=== PATIENT | female | born 1990 | race Caucasian/White ===

== ENCOUNTER 2018-07-07 17:23 | Emergency (ER) | payer BC ==
[~2018-07-07] VITALS: Ht 165.1 cm; Wt 77.1 kg
[~2018-07-07 17:23] MED LIST: ACET1TAB43 PO; ACHD5005 PO; ALBU8.5H4 IH; ASCO-262 PO; CETI10TA20 PO; DOCU100C37 PO; DOXY1TAB3 PO; FAMO-119 PO; FOLI1TAB24 PO; HYDR118S10 PO; IBUP-1773 PO; MULT-228 PO; ONDA4TAB8 PO; allergy shot; vitamin b6 PO
--- OUTSIDE RECORDS SUMMARY | 2018-07-07 17:38 | XMS REPORT | Continuity of Care Document ---
Author Author [facility] Organization [facility] Address Unknown Phone Unavailable Allergies Active Description Code Type Severity Reaction Onset Reported/Identified Relationship to Patient Clinical Status Yes Latex, Natural Rubber [id number] Drug Allergy Unknown N/A 11/15/2013 Yes morphine [id number] Drug Allergy Unknown N/A 11/15/2013 Medications There is no data. Problems Date Dx Coded Attending Type Code Diagnosis Diagnosed By 11/15/2013 CIRO ZALDIVAR MD Ot 805.2 FX DORSAL VERTEBRA-CLOSE 11/15/2013 CIRO ZALDIVAR MD Ot 959.19 OTH INJURY OF OTHER SITES OF TRUNK 11/15/2013 CIRO ZALDIVAR MD Ot E000.8 OTHER EXTERNAL CAUSE STATUS 11/15/2013 CIRO ZALDIVAR MD Ot E849.0 ACCIDENT IN HOME 11/15/2013 CIRO ZALDIVAR MD Ot E880.9 FALL ON STAIR/STEP NEC 03/20/2015 DAVID PHOENIX MD Ot 789.00 06/22/2015 DAVID PHOENIX MD Ot 789.00 06/23/2015 NGUYỄN JACOBS DO Ot 643.03 MILD HYPEREMESIS-ANTEPAR 06/23/2015 NGUYỄN JACOBS DO Ot 643.03 07/28/2015 DAVID PHOENIX MD Ot 789.00 12/25/2015 NGUYỄN JACOBS DO Ot O63.1 PROLONGED SECOND STAGE (OF LABOR) 12/25/2015 NGUYỄN JACOBS DO Ot O76 ABNLT IN HEART RATE AND RHYTHM COM 12/25/2015 NGUYỄN JACOBS DO Ot Z37.0 SINGLE LIVE 12/25/2015 NGUYỄN JACOBS DO Ot Z3A.37 37 WEEKS GESTATION OF 01/06/2016 DAVID PHOENIX MD Ot 789.00 06/15/2016 DAVID PHOENIX MD Ot 789.00 ABDOMINAL PAIN, UNSPECIFIED SITE 11/09/2016 DAVID PHOENIX MD Ot 789.00 ABDOMINAL PAIN, UNSPECIFIED SITE 11/17/2016 DAVID PHOENIX MD Ot 789.00 ABDOMINAL PAIN, UNSPECIFIED SITE 11/20/2016 NAYLA ROSENBAUM DO Ot J45.909 UNSPECIFIED ASTHMA, UNCOMPLICATED 11/20/2016 NAYLA ROSENBAUM DO Ot R06.00 DYSPNEA, UNSPECIFIED 12/05/2016 NAYLA ROSENBAUM DO Ot J45.909 UNSPECIFIED ASTHMA, UNCOMPLICATED 12/05/2016 NAYLA ROSENBAUM DO Ot R06.00 DYSPNEA, UNSPECIFIED 05/10/2017 ALBAN VALENTIN, DAVID Ot 789.00 ABDOMINAL PAIN, UNSPECIFIED SITE 05/10/2017 NAYLA ROSENBAUM DO Ot J45.909 UNSPECIFIED ASTHMA, UNCOMPLICATED 05/10/2017 NAYLA ROSENBAUM DO Ot R06.00 DYSPNEA, UNSPECIFIED 07/24/2017 DAVID PHOENIX MD Ot 789.00 ABDOMINAL PAIN, UNSPECIFIED SITE 07/24/2017 NAYLA ROSENBAUM DO Ot J45.909 UNSPECIFIED ASTHMA, UNCOMPLICATED 07/24/2017 NAYLA ROSENBAUM DO Ot R06.00 DYSPNEA, UNSPECIFIED 07/24/2017 DAVID PHOENIX MD Ot 789.00 ABDOMINAL PAIN, UNSPECIFIED SITE 07/24/2017 NAYLA ROSENBAUM DO Ot J45.909 UNSPECIFIED ASTHMA, UNCOMPLICATED 07/24/2017 NAYLA ROSENBAUM DO Ot R06.00 DYSPNEA, UNSPECIFIED 05/21/2018 DAVID PHOENIX MD Ot 789.00 ABDOMINAL PAIN, UNSPECIFIED SITE 05/21/2018 NAYLA ROSENBAUM DO Ot J45.909 UNSPECIFIED ASTHMA, UNCOMPLICATED 05/21/2018 NAYLA ROSENBAUM DO Ot R06.00 DYSPNEA, UNSPECIFIED Procedures Code Description Performed By Performed On [id number] DIVISION OF FEMALE PERINEUM, EXTERNAL AP 12/23/2015 [id number] EXTRACTION OF PRODUCTS OF CONCEPTION, [place] 12/23/2015 Results There is no data. Encounters ACCT No. Visit Date/Time Discharge Status Pt. Type Provider Facility Loc./Unit Complaint [id number] 11/17/2016 14:09:00 11/17/2016 23:59:59 [facility] Outpatient NAYLA ROSENBAUM DO [facility] ASTHMA,DYSPNEA [id number] 06/22/2015 10:49:00 06/23/2015 11:57:00 DIS Inpatient NGUYỄN JACOBS DO [facility] HYPEREMESIS [id number] 11/15/2013 02:09:00 11/15/2013 05:34:00 DIS Emergency CIRO ZALDIVAR MD [facility] ER FALL,BACK PAIN [id number] 11/10/2013 09:43:00 11/10/2013 23:59:59 CLS Outpatient DAVID PHOENIX MD [facility] RAD RUQ PAIN [id number] 12/23/2015 05:30:00 ACT Inpatient VALERIENGUYỄN CRUZ DO [facility] LDRP SROM 11/201605/28/2018 08:31:39 05/28/2018 23:59:59 CLS Outpatient Lashell Tomlinson 6016 11/30/2016 10:31:19 11/30/2016 23:59:59 CLS Outpatient
[2018-07-07] MEDS ORDERED: fentaNYL INJECTION 100 MCG/2 ML AMP IVP ONE ×2 (18:15→19:30)
[2018-07-07] MEDS ORDERED: NS IV 1000 ML 1,000 ML IV SCH (18:15)
[2018-07-07] MEDS ORDERED: NS 100 ML (IVPB) BAG IV ONE (18:15)
[2018-07-07] MEDS ORDERED: ONDANSETRON 4 MG/2 ML (SDV) Z0FRAN IVP ONE (18:15)
[2018-07-07] MEDS ORDERED: IOHEXOL 350 MG/ML 100 ML (OMNIPAQUE 350) VIAL IV ONE (18:15)
[2018-07-07 18:18] LABS: BASOPHILS % (AUTO) 0 % (0-10); EOSINOPHILS # (AUTO) 0.1 10^3/uL (0.0-0.3); EOSINOPHILS % (AUTO) 1 % (0-10); HEMATOCRIT 43 % (35-52); HEMOGLOBIN 14.9 G/DL (11.5-16.0); LYMPHOCYTES % (AUTO) 31 % (12-44); MEAN CORPUSCULAR HEMOGLOBIN 29 PG (25-34); MEAN CORPUSCULAR HGB CONC 34 G/DL (32-36); MEAN CORPUSCULAR VOLUME 85 FL (80-99); MEAN PLATELET VOLUME 10.4 FL (7.4-10.4); MONOCYTES # (AUTO) 0.5 X 10^3 (0.0-1.0); MONOCYTES % (AUTO) 8 % (0-12); NEUTROPHILS # (AUTO) 3.8 X 10^3 (1.8-7.8); NEUTROPHILS % (AUTO) 59 % (42-75); PLATELET COUNT 272 10^3/uL (130-400); RED BLOOD COUNT 5.13 10^6/uL (4.35-5.85); WHITE BLOOD COUNT 6.4 10^3/uL (4.3-11.0)
--- NOTE | 2018-07-07 18:30 | ED Abdominal Pain ---
General Chief Complaint: Abdominal/GI Problems Stated Complaint: RT SIDE ABD PAIN Nursing Triage Note: C/O R LOWER QUAD PAIN REPORTS NOT FELT WELL ALL WEEKEND TODAY PAIN WORSE. NAUSEA NO VOMITING. Sepsis Screen: No Definite Risk Source of Information: Patient Exam Limitations: No Limitations History of Present Illness Date Seen by Provider: Jul 07, 2018 Time Seen by Provider: 18:29 Initial Comments To ER with reports of right lower quadrant pain. This began about 2-3 days ago. The pain was rather diffuse but after awakening today from a nap seemed much more intense and localized to the RLQ. She has had nausea but no vomiting. Today , after a wedding she laid down for a nap and then awakened. She is unable to put her legs flat because this causes worsening pain. She does have a history of some gallbladder issues but states this feels different, (she still has her gallbladder) and she also has a history of kidney stones but this feels different and she also reports a history of ovarian cysts but this pain is more superior than that. Timing/Duration: 2-3 Days Severity/Quality: Moderate, Severe Location: RLQ Radiation: No Radiation Activities at Onset: None Associated Symptoms: No Nausea/Vomiting Allergies and Home Medications Allergies Coded Allergies: Latex, Natural Rubber (Verified Allergy, Unknown, 11/15/13) morphine (Verified Allergy, Unknown, 11/15/13) Home Medications Acetaminophen with Codeine 1 Each Tablet, 1-2 TAB PO Q4H PRN for MODERATE TO SEVERE PAIN Prescribed by: NGUYỄN JACOBS on 12/25/15852 Albuterol Sulfate 8.5 Gm Hfa.aer.ad, 8.5 GM IH Q4H PRN for SHORTNESS OF BREATH, (Reported) Ascorbate Calcium Unknown Strength Tablet, 1 PO DAILY, (Reported) Cetirizine HCl 10 Mg Tablet, 10 MG PO BID, (Reported) Docusate Sodium 100 Mg Capsule, 100 MG PO BID PRN for CONSTIPATION Prescribed by: NGUYỄN JACOBS on 12/25/15852 Doxylamine/Pyridoxine HCl 1 Each Tablet.dr, 1 EACH PO HS, (Reported) Famotidine 20 Mg Tablet, 1 PO DAILY, (Reported) Folic Acid 1 Mg Tablet, 1 MG PO DAILY, (Reported) Ibuprofen 600 Mg Tablet, 600 MG PO Q6H Prescribed by: NGUYỄN JACOBS on 12/25/15852 Multivitamin 1 Each Tab.chew, 1 EACH PO DAILY, (Reported) [allergy shot] , weekly, (Reported) [vitamin b6] , 1 PO DAILY, (Reported) Patient Home Medication List Home Medication List Reviewed: Yes Review of Systems Constitutional: see HPI; No chills, No fever EENTM: No Symptoms Reported Respiratory: No Symptoms Reported Cardiovascular: No Symptoms Reported Gastrointestinal: See HPI, Abdominal Pain; Denies Constipated, Denies Diarrhea , Denies Nausea, Denies Vomiting Genitourinary: No Symptoms Reported Musculoskeletal: no symptoms reported Skin: no symptoms reported Psychiatric/Neurological: No Symptoms Reported Endocrine: No Symptoms Reported Past Vdxlvth-Syqswm-Vgmbrn Hx Patient Social History Alcohol Use: Denies Use Recreational Drug Use: No Smoking Status: Never a Smoker Recent Foreign Travel: No Contact w/Someone Who Travel: No Recent Infectious Disease Expo: No Immunizations Up To Date Tetanus Booster (TDap): Less than 5yrs Past Medical History Surgeries: Yes (brain 2000, ovarian/cervial 2009) Respiratory: Yes Asthma Cardiac: No Neurological: Yes (surgery for chiari malformation 2000) Reproductive Disorders: Yes Female Reproductive Disorders: Endometriosis Sexually Transmitted Disease: No HIV/AIDS: No Genitourinary: Yes Kidney Stones Gastrointestinal: Yes Irritable Bowel Musculoskeletal: No (fx back 2012 ) Endocrine: No Cancer: Yes (mass surgically removed from ovary and cervix 2009) Cervical, Ovarian Psychosocial: No Integumentary: No Blood Disorders: No Family Medical History Asthma 19 FATHER Cardiovascular disease 19 FATHER (PGF) Cataracts 19 FATHER (PGM) Colon cancer 19 MOTHER (?MGF) Completed stroke 19 FATHER (PGF) Deafness or hearing loss 19 FATHER (grandparents) 19 MOTHER (grandparents) Diabetes mellitus 19 MOTHER (MGM) Headache disorder 19 MOTHER Hypertension 19 MOTHER (MGM) Kidney disease G8 SISTER (kidney stones) Myocardial infarction 19 FATHER (PGF) Parkinson's disease 19 FATHER (PGF) Thyroid disease 19 MOTHER No Pertinent Family Hx Physical Exam Vital Signs Vital Signs - First Documented 07/07/18 17:32 Temp 97.6 Pulse 78 Resp 18 B/P (MAP) 109/73 (85) Pulse Ox 98 Capillary Refill : Less Than 3 Seconds Height/Weight/BMI Height: 5'5.00" Weight: 170lbs. oz. 77.733934iz; 34.08 BMI Method:Stated General Appearance: WD/WN, no apparent distress HEENT: PERRL/EOMI, normal ENT inspection Respiratory: no respiratory distress, no accessory muscle use Cardiovascular: regular rate, rhythm, no murmur Gastrointestinal: normal bowel sounds, soft; No guarding, No rebound; tenderness Extremities: normal range of motion, non-tender Neurologic/Psychiatric: alert, normal mood/affect, oriented x 3 Skin: normal color, warm/dry Progress/Results/Core Measures Results/Orders Lab Results Laboratory Tests Test 07/07/18 18:03 07/07/18 19:00 Range/Units White Blood Count 6.4 4.3-11.0 10^3/uL Red Blood Count 5.13 4.35-5.85 10^6/uL Hemoglobin 14.9 11.5-16.0 G/DL Hematocrit 43 35-52 % Mean Corpuscular Volume 85 80-99 FL Mean Corpuscular Hemoglobin 29 25-34 PG Mean Corpuscular Hemoglobin Concent 34 32-36 G/DL Red Cell Distribution Width 13.0 10.0-14.5 % Platelet Count 272 130-400 10^3/uL Mean Platelet Volume 10.4 7.4-10.4 FL Neutrophils (%) (Auto) 59 42-75 % Lymphocytes (%) (Auto) 31 12-44 % Monocytes (%) (Auto) 8 0-12 % Eosinophils (%) (Auto) 1 0-10 % Basophils (%) (Auto) 0 0-10 % Neutrophils # (Auto) 3.8 1.8-7.8 X 10^3 Lymphocytes # (Auto) 2.0 1.0-4.0 X 10^3 Monocytes # (Auto) 0.5 0.0-1.0 X 10^3 Eosinophils # (Auto) 0.1 0.0-0.3 10^3/uL Basophils # (Auto) 0.0 0.0-0.1 10^3/uL Sodium Level 143 135-145 MMOL/L Potassium Level 3.7 3.6-5.0 MMOL/L Chloride Level 110 H 98-107 MMOL/L Carbon Dioxide Level 26 21-32 MMOL/L Anion Gap 7 5-14 MMOL/L Blood Urea Nitrogen 15 7-18 MG/DL Creatinine 0.73 0.60-1.30 MG/DL Estimat Glomerular Filtration Rate > 60 BUN/Creatinine Ratio 21 Glucose Level 101 70-105 MG/DL Calcium Level 9.1 8.5-10.1 MG/DL Corrected Calcium 9.0 8.5-10.1 MG/DL Total Bilirubin 0.4 0.1-1.0 MG/DL Aspartate Amino Transf (AST/SGOT) 15 5-34 U/L Alanine Aminotransferase (ALT/SGPT) 12 0-55 U/L Alkaline Phosphatase 61 40-136 U/L Total Protein 6.5 6.4-8.2 GM/DL Albumin 4.1 3.2-4.5 GM/DL Serum Test, Qualitative NEGATIVE NEGATIVE Urine Color YELLOW Urine Clarity CLEAR Urine pH 7 5-9 Urine Specific [place] 1.010 L 1.016-1.022 Urine Protein NEGATIVE NEGATIVE Urine Glucose (UA) NEGATIVE NEGATIVE Urine Ketones NEGATIVE NEGATIVE Urine Nitrite NEGATIVE NEGATIVE Urine Bilirubin NEGATIVE NEGATIVE Urine Urobilinogen NORMAL NORMAL MG/DL Urine Leukocyte Esterase 1+ H NEGATIVE Urine RBC (Auto) NEGATIVE NEGATIVE Urine RBC NONE /HPF Urine WBC 0-2 /HPF Urine Squamous Epithelial Cells 0-2 /HPF Urine Renal Epithelial Cells NONE /HPF Urine Crystals NONE /LPF Urine Bacteria NEGATIVE /HPF Urine Casts NONE /LPF Urine Mucus SMALL H /LPF Urine Culture Indicated NO My Orders Orders - SERINA LANCASTER HOME CHILD CARE PROVIDER Cbc With Automated Diff (07/07/18 18:04) Comprehensive Metabolic Panel (07/07/18 18:04) Ua Culture If Indicated (07/07/18 18:04) Iv Heplock-Insert (Order) (07/07/18 18:04) Hcg,Qualitative Serum (07/07/18 18:04) Fentanyl Injection (Sublimaze Injection (07/07/18 18:15) Ondansetron Injection (Zofran Injectio (07/07/18 18:15) Ns Iv 1000 Ml (Sodium Chloride 0.9%) (07/07/18 18:15) Ct Abd/Pelv W (Appendicitis) (07/07/18 18:04) Iohexol Injection (Omnipaque 350 Mg/Ml 1 (07/07/18 18:15) Ns (Ivpb) (Sodium Chloride 0.9% Ivpb Bag (07/07/18 18:15) Fentanyl Injection (Sublimaze Injection (07/07/18 19:30) Us Non Ob Transvaginal 70410 (07/07/18 19:36) Ketorolac Injection (Toradol Injection) (07/07/18 21:15) Medications Given in ED Current Medications Medications Dose Ordered Sig/Angela Route Start Time Stop Time Status Last Admin Dose Admin Fentanyl Citrate 50 mcg ONCE ONCE IVP 07/07/18 18:15 07/07/18 18:16 DC 07/07/18 18:13 50 MCG Fentanyl Citrate 75 mcg ONCE ONCE IVP 07/07/18 19:30 07/07/18 19:31 DC 07/07/18 19:39 75 MCG Iohexol 100 ml ONCE ONCE IV 07/07/18 18:15 07/07/18 20:42 DC 07/07/18 18:40 100 ML Ondansetron HCl 4 mg ONCE ONCE IVP 07/07/18 18:15 07/07/18 18:16 DC 07/07/18 18:12 4 MG Sodium Chloride 100 ml ONCE ONCE IV 07/07/18 18:15 07/07/18 20:42 DC 07/07/18 18:40 100 ML Vital Signs/I&O 07/07/18 17:32 Temp 97.6 Pulse 78 Resp 18 B/P (MAP) 109/73 (85) Pulse Ox 98 Blood Pressure Mean: 85 Diagnostic Imaging Diagonstic Imaging: CT Comments NAME: LUH NOBLES MED REC#: [id number] PT STATUS: REG ER : 1990 PHYSICIAN: SERINA LANCASTER APRN ADMIT DATE: 07/07/18/ER Draft Date of Exam:07/07/18 CT ABD/PELV W (APPENDICITIS) PROCEDURE: CT abdomen and pelvis with contrast, rule out appendicitis. TECHNIQUE: Multiple contiguous axial images were obtained through the abdomen and pelvis after the administration of intravenous contrast. INDICATION: Right lower quadrant pain. COMPARISON: There are no previous CT abdomen/pelvis examinations available for comparison. FINDINGS: The coronal images indicate that the cecum overlies the LEFT LOWER QUADRANT. The appendix was visualized near midline and does not seem to be abnormally thickened. There is no distortion of the periappendiceal fat to suggest acute appendicitis either. The position of the cecum in the left lower quadrant would indicate a malrotation anomaly. If further study is desired, then an air contrast colon exam would be recommended. There is no pelvic mass or free fluid collection noted. There is an IUD within the uterus, and the IUD seems to be in good position. The urinary bladder is grossly unremarkable. The liver, spleen, pancreas, adrenals, gallbladder, kidneys, aorta, and inferior vena cava show no sign of an acute abnormality. Both kidneys do show excretion of the contrast, and there is no evidence for obstruction of either collecting system. The stomach is partially filled with fluid and consequently difficult to assess. The lung bases are clear. The bone window show no evidence for a fracture or for a destructive lesion. IMPRESSION: 1. There is no evidence for acute appendicitis. No other acute abnormality of the abdomen or pelvis is noted either. 2. The cecum lies in the left lower quadrant. 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 Recommendations as above. 3. There is an IUD within the uterus, and the IUD seems to be in good position. Dictated on workstation # [id number] Dict: 07/07/181904 Trans: 07/07/181914 [id number] Interpreted by: ADI PEREZ MD Electronically signed by: Departure Communication (Admissions) I spoke with Dr. Armstrong from surgery. Recommends transvaginal ultrasound to evaluate ovaries. If unremarkable can discharge to home with return precautions. 2122- her pain was initially an 8 or 9 out of 10, currently rated at 5 out of 10. I will order Toradol, she does report persistent nausea. She's had Phenergan in the past so we'll give a dose of Phenergan 12.5 mg IV prior to discharge. We will send her home with Zofran and Percocet as needed for pain control tonight. I discussed with her return precautions including fevers, vomiting, worsening abdominal pain. Otherwise she will call Dr. Garcia tomorrow to make an appointment for follow-up. We discussed other possible etiologies such as a ruptured ovarian cyst which she does have a history of. There is no sign of bowel obstruction, normal labs, normal urinalysis. I also discussed with her possibility of a pelvic or gynecologic infection given that she has an IUD. I did offer to do a pelvic exam with cultures here or do for this to her primary care provider Dr. TOMLINSON. She would prefer to follow-up and have this done with her primary care provider and asserts that she's had no vaginal discharge. Impression Primary Impression: nonspecific right lower quadrant abdominal pain Disposition: 01 HOME, SELF-CARE Condition: Stable Departure-Patient Inst. Decision time for Depature: 20:52 Referrals: RAPHAEL TOMLINSON DO (PCP/Family) Primary Care Physician Patient Instructions: Acute Abdomen (Belly Pain), Adult (DC) Add. Discharge Instructions: 1. Return to ER for any fevers or vomiting 2. Follow-up with Dr. Tomlinson. Call tomorrow to make an appointment to be seen All discharge instructions reviewed with patient and/or family. Voiced understanding. Work/School Note: Work Release Form Date Seen in the Emergency Department: Jul 07, 2018 Return to Work: Jul 09, 2018 Images Torso/Trunk 1 - Tenderness Copy Copies To 1: RAPHAEL TOMLINSON PETER J APRN Jul 07, 2018 18:30
[2018-07-07 18:47] LABS: ALANINE AMINOTRANSFERASE 12 U/L (0-55); ALBUMIN 4.1 GM/DL (3.2-4.5); ALKALINE PHOSPHATASE 61 U/L (40-136); BILIRUBIN,TOTAL 0.4 MG/DL (0.1-1.0); BUN/CREATININE RATIO 21; CALCIUM 9.1 MG/DL (8.5-10.1); CARBON DIOXIDE 26 MMOL/L (21-32); CHLORIDE 110 MMOL/L (98-107); CREATININE SERUM 0.73 MG/DL (0.60-1.30); GFR ESTIMATED > 60; GLUCOSE 101 MG/DL (70-105); POTASSIUM 3.7 MMOL/L (3.6-5.0); SODIUM 143 MMOL/L (135-145); TOTAL PROTEIN 6.5 GM/DL (6.4-8.2)
--- NOTE | 2018-07-07 19:16 | Diagnostic Imaging Report ---
PROCEDURE: CT abdomen and pelvis with contrast, rule out appendicitis. TECHNIQUE: Multiple contiguous axial images were obtained through the abdomen and pelvis after the administration of intravenous contrast. INDICATION: Right lower quadrant pain. COMPARISON: There are no previous CT abdomen/pelvis examinations available for comparison. FINDINGS: The coronal images indicate that the cecum overlies the LEFT LOWER QUADRANT. The appendix was visualized near midline and does not seem to be abnormally thickened. There is no distortion of the periappendiceal fat to suggest acute appendicitis either. The position of the cecum in the left lower quadrant would indicate a malrotation anomaly. If further study is desired, then an air contrast colon exam would be recommended. There is no pelvic mass or free fluid collection noted. There is an IUD within the uterus, and the IUD seems to be in good position. The urinary bladder is grossly unremarkable. The liver, spleen, pancreas, adrenals, gallbladder, kidneys, aorta, and inferior vena cava show no sign of an acute abnormality. Both kidneys do show excretion of the contrast, and there is no evidence for obstruction of either collecting system. The stomach is partially filled with fluid and consequently difficult to assess. The lung bases are clear. The bone window show no evidence for a fracture or for a destructive lesion. IMPRESSION: 1. There is no evidence for acute appendicitis. No other acute abnormality of the abdomen or pelvis is noted either. 2. The cecum lies in the left lower quadrant. 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 Recommendations as above. 3. There is an IUD within the uterus, and the IUD seems to be in good position. Dictated by: Dictated on workstation # [id number]
[2018-07-07 19:19] LABS: BILIRUBIN,URINE NEGATIVE (NEGATIVE); CLARITY,URINE CLEAR; COLOR,URINE YELLOW; GLUCOSE, URINE (UA) NEGATIVE (NEGATIVE); KETONES,URINE NEGATIVE (NEGATIVE); LEUKOCYTE ESTERASE ,URINE 1+ (NEGATIVE); NITRITE,URINE NEGATIVE (NEGATIVE); PH,URINE 7 (5-9); PROTEIN,URINE NEGATIVE (NEGATIVE); UROBILINOGEN,URINE NORMAL (NORMAL)
[2018-07-07 19:29] LABS: BACTERIA,URINE NEGATIVE /HPF; WBC,URINE 0-2 /HPF
[2018-07-07 19:30] LABS: SQUAMOUS EPITHELIAL CELL,UR 0-2 /HPF
[2018-07-07] MEDS ORDERED: KETOROLAC 30 MG/ML VIAL IVP ONE (21:15)
[2018-07-07] MEDS ORDERED: RX-ONDANSETRON 4 MG ODT (ZOFRAN) PPK #4 PO STA (21:21)
[2018-07-07] MEDS ORDERED: PROMETHAZINE INJ 25 MG/ML (PHENERGAN) AMP IVP ONE (21:30)
[2018-07-07] MEDS ORDERED: RX-OXYCODONE/APAP 5-325 MG #4 TAB PK PO PRN (21:30)
[2018-07-07 21:43] VITALS: BP 109/73
--- NOTE | 2018-07-07 22:07 | Diagnostic Imaging Report ---
INDICATION: Right-sided pain. EXAMINATION: Pelvic ultrasound. FINDINGS: The CT abdomen/pelvis exam performed earlier today failed to show any sign of an acute abnormality. On this study, the uterus is nongravid and not enlarged, measuring 7.1 x 5.4 x 3.5 cm. As noted on the CT exam, there is an IUD within the endometrium. The IUD seems to be in good position. And the endometrial lining is not thickened. There is no focal mass involving the uterus to suggest a fibroid. Both ovaries were identified and were generally unremarkable. There is good blood flow to each ovary and there is no sign of torsion. There is no pelvic mass or free fluid collection evident. IMPRESSION: 1. There is no evidence for an acute pelvic abnormality. 2. The IUD within the uterus appears to be in good position. Dictated by: Dictated on workstation # [id number]
== END 2018-07-07 21:43 | disposition home or self-care (01) ==
LOC: EDUNIT# 17:23 → ER 17:25
DX: R10.31 Right lower quadrant pain (principal); J45.909 Unspecified asthma, uncomplicated; Z85.43 Personal history of malignant neoplasm of ovary; Z82.49 Family history of ischemic heart disease and other diseases of the circulatory system; Z80.0 Family history of malignant neoplasm of digestive organs; Z87.19 Personal history of other diseases of the digestive system; Z91.040 Latex allergy status; Z88.5 Allergy status to narcotic agent; Z79.51 Long term (current) use of inhaled steroids; Z87.442 Personal history of urinary calculi; Z87.448 Personal history of other diseases of urinary system
CPT/HCPCS: 36415; 74177; 76830; 80053; 81000; 84703; 85025

== ENCOUNTER → 2019-05-15 | Outpatient (CLI) | payer BC ==
--- NOTE | 2019-05-15 15:32 | Diagnostic Imaging Report ---
INDICATION: survey. TECHNIQUE: Multiple real-time grayscale images were obtained over the gravid uterus. COMPARISON: There are no prior studies available for comparison. FINDINGS: There is a single live fetus in breech presentation. heart motion was noted and a rate of 157 bpm was recorded. There were no abnormalities identified. The growth parameters are fairly uniform. The placenta is anterior and there is no previa. The amniotic fluid index is within normal limits. The cervix was identified and measures 3.3 cm in length. Biometrical measurements are as follows: Biparietal 4.35 cm, age 19 weeks 2 days. Head circumference 16.65 cm, age 19 weeks 3 days. Abdominal circumference 14.32 cm, age 19 weeks 5 days. Femur length 3.11 cm, age 19 weeks 5 days. Sonographic estimate age: 19 weeks 4 days. Sonographic estimated date of delivery: 10/05/2019. Estimated Weight: 302 gm (+/- 44 gm). LMP percentile: 56%. heart rate: 157 beats per minute. number: 1 of 1. IMPRESSION: 1. There is a single live fetus in breech presentation approximately 19 weeks 4 days gestation plus or -1.5 weeks. The EDC is 10/05/2019. 2. There were no abnormalities identified. 3. The growth parameters are fairly uniform. Dictated by: Dictated on workstation # [id number]
== END ==
LOC: RAD 13:54
PROVIDERS: ATTEND Obstetrics & Gynecology
DX: Z36.89 Encounter for other specified antenatal screening (principal); Z3A.19 19 weeks gestation of pregnancy
CPT/HCPCS: 76805

== ENCOUNTER 2019-09-08 08:19 | Outpatient (CLI) | payer BC ==
[~2019-09-08] VITALS: Ht 163 cm; Wt 88.9 kg
--- NOTE | 2019-09-08 08:10 | NUR ---
LUH NOBLES presented to unit via ambulation from home, with c/o DECREASED MOVEMENT,LOWER ABD PRESSURE. LUH NOBLES weighed, gowned, voided, and to bed. EFHM and TOCO applied, VS taken. LUH NOBLES oriented to bed controls, call light, TV, heat, and A/C controls.
[2019-09-08 08:30] VITALS: BP 120/81
[2019-09-08 08:49] LABS: BILIRUBIN,URINE NEGATIVE (NEGATIVE); CLARITY,URINE CLEAR; COLOR,URINE YELLOW; GLUCOSE, URINE (UA) NEGATIVE (NEGATIVE); KETONES,URINE NEGATIVE (NEGATIVE); LEUKOCYTE ESTERASE ,URINE 3+ (NEGATIVE); NITRITE,URINE NEGATIVE (NEGATIVE); PH,URINE 6 (5-9); PROTEIN,URINE 2+ (NEGATIVE); UROBILINOGEN,URINE NORMAL (NORMAL)
[2019-09-08 09:00] LABS: BACTERIA,URINE TRACE /HPF; SQUAMOUS EPITHELIAL CELL,UR TNTC /HPF
--- NOTE | 2019-09-08 09:10 | NUR ---
DR JACOBS ON UNIT FOR ANOTHER PT. NOTIFIED OF PT ARRIVAL. C/O DECREASED MOVEMENT, INCREASED VAGINAL DISCHARGE, AND PRESSURE. UPDATED ON PT CTX PATTERN, FHR STATUS, NEGATIVE NITRAZINE, SVE, UA RESULTS. ORDERS REC'D TO CALL IN KEFLEX, D/C PT TO HOME.
--- NOTE | 2019-09-08 09:17 | NUR ---
KEFLEX 500MG QID X7 DAYS CALLED TO [facility]
[2019-09-08] MEDS ORDERED: CEPH-507 PO (09:23)
--- NOTE | 2019-09-08 09:40 | NUR ---
DISCHARGE INSTRUCTIONS EXPLAINED TO PT WITH COPY PROVIDED TO PT. PT NOTIFIED OF PRESCRIPTION CALLED IN TO [facility]. PT VERBALIZES UNDERSTANDING OF INSTRUCTION AND SIGNS TO VERIFY. QUESTIONS ANSWERED TO PT SATISFACTION. NO FURTHER NEEDS OR CONCERNS VOICED. PT AMBULATES OFF UNIT TO PRIVATE VEHICLE WITH ALL PERSONAL BELONGINGS.
== END 2019-09-08 09:40 | disposition home or self-care (01) ==
LOC: LDRP 08:19 → WSo 08:19
PROVIDERS: ATTEND Obstetrics & Gynecology
DX: O36.8130 Decreased fetal movements, third trimester, not applicable or unspecified (principal); Z3A.36 36 weeks gestation of pregnancy
CPT/HCPCS: 81000; 87088; 99214

== ENCOUNTER 2019-09-24 09:27 | Inpatient (IN) | payer BC ==
[~2019-09-24] VITALS: Ht 165.1 cm; Wt 90.7 kg
[2019-09-24] VITALS (38 sets, daily range): BP systolic 104–153; BP diastolic 57–91
--- NOTE | 2019-09-24 09:20 | NUR ---
Arrived to unit ambulates self accompanied by family member. Pt c/o " contractions, back pain." To room 320. Gowned and urine sample obtained. To bed and monitors applied. Oriented to room, call light and surroundings. plan of care reviewed with pt and family member.
[~2019-09-24 09:27] MED LIST changes: +CEPH-507 PO
--- NOTE | 2019-09-24 09:56 | NUR ---
Dr Gilmore notified of pt arrival, sve. New order for admission received.
[2019-09-24] MEDS ORDERED: MINERAL OIL CONCENTRATE 99.9% 15 ML UDC TOP PRN (10:00)
--- NOTE | 2019-09-24 10:05 | NUR ---
Report to Rosa Daugherty rn
[2019-09-24] MEDS: D5 LR IV SOLUTION 1,000 ML IV SCH (11:24)
[2019-09-24 11:33] LABS: BASOPHILS % (AUTO) 0 % (0-10); EOSINOPHILS % (AUTO) 0 % (0-10); HEMATOCRIT 43 % (35-52); HEMOGLOBIN 14.8 G/DL (11.5-16.0); LYMPHOCYTES # (AUTO) 1.6 X 10^3 (1.0-4.0); LYMPHOCYTES % (AUTO) 14 % (12-44); MEAN CORPUSCULAR HEMOGLOBIN 29 PG (25-34); MEAN CORPUSCULAR HGB CONC 34 G/DL (32-36); MEAN CORPUSCULAR VOLUME 85 FL (80-99); MEAN PLATELET VOLUME 11.4 FL (7.4-10.4); MONOCYTES # (AUTO) 0.7 X 10^3 (0.0-1.0); MONOCYTES % (AUTO) 6 % (0-12); NEUTROPHILS # (AUTO) 9.1 X 10^3 (1.8-7.8); NEUTROPHILS % (AUTO) 79 % (42-75); PLATELET COUNT 238 10^3/uL (130-400); RED CELL DISTRIBUTION WIDTH 14.3 % (10.0-14.5); WHITE BLOOD COUNT 11.5 10^3/uL (4.3-11.0)
--- NOTE | 2019-09-24 13:08 | NUR ---
pt ambulating in hallways with mother and @ side.
[2019-09-24] MEDS: CATHETER FLUSH 10 ML SYR IV SCH ×3 (14:16→22:00)
--- NOTE | 2019-09-24 14:52 | NUR ---
anesthesia notified of pt's request for epidural placement
[2019-09-24] MEDS: LACTATED RINGERS 1,000 ML IV SCH ×2 (14:54→16:00)
[2019-09-24] MEDS ORDERED: SUFENTA 0.6MCG/ML BUPIVA 0.125 100 ML ONE (14:57)
[2019-09-24] MEDS ORDERED: fentaNYL INJECTION 100 MCG/2 ML AMP ONE (15:16)
[2019-09-24] MEDS ORDERED: BUPIVACAINE 0.25% 30 ML (SENSORCAINE) VIAL ONE (15:16)
[2019-09-24] MEDS ORDERED: LIDOCAINE PF 2% 5 ML (XYLOCAINE) VIAL ONE (15:16)
--- NOTE | 2019-09-24 15:31 | NUR ---
PIPPA Rodriguez and VERENICE Gleason here for epidural placement. Procedure explained, consent reviewed and signed by anesthesia. Questions answered to patient's satisfaction. Time out taken to verify correct patient/procedure. 1531- Patient up to side of bed, assisted into sitting position. Betadine prep done x3 and sterile drape applied. 1541- Local done, see anesthesia record. 1547- Test dose given, see anesthesia record for drug and dosage. Epidural catheter secured in place. Epidural placement complete. Assisted back into bed, monitors adjusted. Epidural dosed, see anesthesia record. Epidural of Sufenta/Bupvicaine @12cc/hr stated per pump. Patient tolerated procedure well.
[2019-09-24] MEDS ORDERED: ONDANSETRON 4 MG/2 ML (SDV) Z0FRAN ONE (15:57)
[2019-09-24] MEDS ORDERED: diphenhydrAMINE 50 MG/ML INJ (BENADRYL) IV PRN (16:00)
[2019-09-24] MEDS ORDERED: EPIDURAL (SUFENTA 0.6MCG/ML BUPIVA 0.125%) 100 ML BAG EPI PRN (16:00)
[2019-09-24] MEDS ORDERED: NALOXONE 0.4 MG/ML 1 ML (NARCAN) VIAL IV PRN (16:00)
[2019-09-24] MEDS ORDERED: ONDANSETRON 4 MG/2 ML (SDV) Z0FRAN IV PRN (16:00)
[2019-09-24] MEDS ORDERED: OXYTOCIN/NORMAL SALINE 500 ML IV SCH (17:33)
--- NOTE | 2019-09-24 17:34 | NUR ---
called. pitocin order received.
[2019-09-24] MEDS ORDERED: OXYTOCIN/NORMAL SALINE 500 ML IV ONE (17:35)
[2019-09-24] MEDS ORDERED: LIDOCAINE/EPI 2% 1:200,00 (XYLOCAINE) 10 ML VIAL ONE (20:31)
[2019-09-24] MEDS: OXYTOCIN/NORMAL SALINE 500 ML IV SCH ×2 (21:18→21:50)
[2019-09-24] MEDS ORDERED: METHYLERGONOVINE 0.2 MG/ML (METHERGINE) AMP ONE (21:20)
[2019-09-24] MEDS ORDERED: IBUPROFEN 600 MG (MOTRIN) TAB PO ONE (21:34)
--- NOTE | 2019-09-24 21:35 | OB Labor & Delivery Record ---
L&D History Date of Service Date of Service: Sep 24, 2019 History Expected Date of Delivery: Oct 06, 2019 Gestational Age in Weeks: 38 Hx : 1 Hx Para: 0 Complications Events: Routine care Operative Indications (Cesarea: N/A-Vaginal Delivery Intrapartal Events: None L&D Stage1 Stage One Onset of Labor - Date: Sep 24, 2019 Monitors and Tracing Monitor Mode: External Heart Rate: 135 Monitor Accelerations: Uniform Monitor Decelerations: None Station: 0 Wet Room Worker Variability: Average (6-10) Short Term Variability: Present Presentation: Vertex Vital Signs VS - Last 72 Hours, by Label POS 09/24/19 09/24/19 09/24/19 09/24/19 09:20 09:37 10:30 11:30 Temp 36.1 36.1 Pulse 87 87 98 99 Resp 18 16 18 18 B/P (MAP) 119/84 (96) 127/89 (102) 118/72 (87) Pulse Ox 97 97 O2 Delivery Room Air Room Air Room Air Room Air 09/24/19 09/24/19 09/24/19 09/24/19 12:00 12:30 14:00 14:15 Temp 36.4 36.1 Pulse 85 87 Resp 18 18 18 16 B/P (MAP) 121/69 (86) Pulse Ox 97 O2 Delivery Room Air Room Air Room Air Room Air 09/24/19 09/24/19 09/24/19 09/24/19 15:00 15:35 15:40 15:45 Pulse 102 91 96 Resp 18 18 18 18 B/P (MAP) 131/88 (102) 141/85 (103) 147/91 (109) Pulse Ox 99 100 99 O2 Delivery Room Air Room Air Room Air Room Air 09/24/19 09/24/19 09/24/19 09/24/19 15:50 15:55 16:00 16:09 Pulse 99 83 81 85 Resp 18 18 18 18 B/P (MAP) 153/68 (96) 111/70 (84) 118/72 (87) Pulse Ox 99 92 89 98 O2 Delivery Room Air Room Air Room Air Room Air 09/24/19 09/24/19 09/24/19 09/24/19 16:10 16:16 16:20 16:30 Temp 36.3 Pulse 83 92 86 87 Resp 18 18 18 18 B/P (MAP) 115/73 (87) 118/78 (91) 105/71 (82) 118/75 (89) Pulse Ox 98 98 99 99 O2 Delivery Room Air Room Air Room Air Room Air 09/24/19 09/24/19 09/24/19 09/24/19 16:45 17:00 17:15 17:30 Pulse 81 87 92 85 Resp 18 18 18 18 B/P (MAP) 113/73 (86) 118/75 (89) 117/78 (91) 112/75 (87) Pulse Ox 99 99 100 99 O2 Delivery Room Air Room Air Room Air Room Air 09/24/19 09/24/19 09/24/19 09/24/19 17:45 18:00 18:15 18:30 Pulse 95 81 83 89 Resp 18 18 18 18 B/P (MAP) 115/78 (90) 122/78 (93) 122/77 (92) 121/78 (92) Pulse Ox 99 100 98 97 O2 Delivery Room Air Room Air Room Air Room Air 09/24/19 09/24/19 09/24/19 09/24/19 18:45 19:00 19:15 19:30 Temp 36.4 Pulse 85 85 79 82 Resp 18 18 18 18 B/P (MAP) 113/75 (88) 111/70 (84) 116/75 (89) 109/61 (77) Pulse Ox 97 97 100 100 O2 Delivery Room Air Room Air Room Air Room Air 09/24/19 09/24/19 09/24/19 19:45 20:00 20:15 Pulse 76 80 77 Resp 18 18 18 B/P (MAP) 108/63 (78) 104/60 (75) 117/69 (85) Pulse Ox 100 100 100 O2 Delivery Room Air Room Air Room Air Rupture of Membranes Spontaneous Ruture of Membrane: No Amniotic Membrane Rupture Time: 1747 Amniotic Membrane Fluid Desc.: Clear Vaginal Bleeding Description: Normal Show Induction/Anesthesia Epidural Cath Placement - Time: 1544 Progress/Notes Patient progressed with Pitocin augmentation to complete and + 2 station L&D Stage2 Stage Two Stage II Date: Sep 24, 2019 Monitors and Tracing Monitor Mode: External Heart Rate: 135 Monitor Accelerations: Uniform Monitor Decelerations: Variable Usp Variability: Average (6-10) Short Term Variability: Present Position: Right Occiput Anterior Presentation: Vertex Cord Descript/Complications Cord Vessel Description: 3 Vessels Delivery Type Infant Delivery Method: Spontaneous Vaginal Anterior Shoulder: Left Episiotomy/Perineal Laceration Laceraction(s)/Extensions: Yes Episiotomy Description: Midline Degree (describe repair) midline episiotomy repaired using 3-0 rapide and 2-0 vicryl suture in usual fashion Condition of Delivery 1 minute Comment: 8 5 minute Comment: 9 Notes Live female weight 5lbs 15 oz Condition of Infant Condition of : Living Exam: No Observed Abnormalities Resuscitation Resuscitation: N/A - Spontaneous Resp L&D Stage3 Stage Three Stage III Date: Sep 24, 2019 Pictocin Pitocin Administration mu/min: 4 Pitocin ml/hr: 4 Pitocin Administration Comment: 30 mu wide open at delivery of placenta 0.2 mg Methergine IM given due to some persistent uterine atony. Placenta Delivery Placenta Delivery: Spontaneous Delivery Summary Summary Estimated blood loss (mL): 400 Attending at delivery: Nguễyn Jacobs DO Condition of Delivery Examined: Cervix Examined, Uterus Explored Post Hemorrhage: No Condition of Mother stable Condition of (s) stable NGUYỄN JACOBS DO Sep 24, 2019 9:34 pm POS
--- NOTE | 2019-09-24 21:41 | History & Physical-OB ---
OB - Chief Complaint & HPI Date/Time Date of Admission: Date of Admission: Sep 24, 2019 at 9:56 am Date seen by a Provider: Sep 24, 2019 Time Seen by a Provider: 17:35 Chief Complaint/History OB-Reason for Admission/Chief: Onset of Labor Hx : 1 Hx Para: 0 Expected Date of Delivery: Oct 06, 2019 Gestational Age in Weeks: 38 Gestational Age in Days: 2 Admission Nurse Assessment Rev: Yes History of Labs A neg Antibody neg RI RPR NR HBsAg NR HIV NR GC neg GBS neg Allergies and Home Medications Allergies Coded Allergies: Latex, Natural Rubber (Verified Allergy, Unknown, 11/15/13) morphine (Verified Allergy, Unknown, 11/15/13) Home Medications Albuterol Sulfate 8.5 Gm Hfa.aer.ad, 8.5 GM IH Q4H PRN for SHORTNESS OF BREATH, (Reported) Cephalexin 500 Mg Capsule, 500 MG PO QID Prescribed by: GEOFF BRANDT on 09/08/19 0923 Doxylamine/Pyridoxine HCl 1 Each Tablet.dr, 1 EACH PO HS, (Reported) Folic Acid 1 Mg Tablet, 1 MG PO DAILY, (Reported) Multivitamin 1 Each Tab.chew, 1 EACH PO DAILY, (Reported) [vitamin b6] , 1 PO DAILY, (Reported) Patient Home Medication List Home Medication List Reviewed: Yes OB - History Hx of Present Care: Yes Ultrasounds: Normal mid trimester US Obstetrical Complications: None Medical Complications: None Obstetrical History Hx : 1 Hx Para: 0 Hx Termination: Yes Hx Multiple Gestation: No Hx Stillbirth: No Hx Complication: No Hx Induced Hypertens: No Hx Maternal Gestational Diabet: No Delivery History Hx Blood Disorders: No Patient Past Medical History na Social History/Family History HIV/AIDS: No Recent Infectious Disease Expo: No Sexually Transmitted Disease: No Alcohol Use: Occasionally Uses Recreational Drug Use: No 2nd Hand Smoke Exposure: No Immunizations Tetanus Booster (TDap): Less than 5yrs OB - Admission Exam Physical Exam Vitals: Vital Signs 09/24/19 09/24/19 19:15 20:15 Temp 36.4 Pulse 77 Resp 18 B/P (MAP) 117/69 (85) Pulse Ox 100 O2 Delivery Room Air HEENT: NCAT Heart: Rhythm Normal Lungs: Clear Abdomen: Gravid Extremities: Normal Reflexes: Normal Cervical Dilatation: 5cm Effacement: 75% Station: -1 Membranes: Intact Heart Rate: 130's Accelerations: Accelerations Present Decelerations: No Decelerations Short Term Variability: Present Correction Variability: Average (6-25) Contractions on Admission: 6-10 Minutes Apart Intensity: Firm Labs Laboratory Tests Test 09/24/19 11:16 Range/Units White Blood Count 11.5 H 4.3-11.0 10^3/uL Red Blood Count 5.08 4.35-5.85 10^6/uL Hemoglobin 14.8 11.5-16.0 G/DL Hematocrit 43 35-52 % Mean Corpuscular Volume 85 80-99 FL Mean Corpuscular Hemoglobin 29 25-34 PG Mean Corpuscular Hemoglobin Concent 34 32-36 G/DL Red Cell Distribution Width 14.3 10.0-14.5 % Platelet Count 238 130-400 10^3/uL Mean Platelet Volume 11.4 H 7.4-10.4 FL Neutrophils (%) (Auto) 79 H 42-75 % Lymphocytes (%) (Auto) 14 12-44 % Monocytes (%) (Auto) 6 0-12 % Eosinophils (%) (Auto) 0 0-10 % Basophils (%) (Auto) 0 0-10 % Neutrophils # (Auto) 9.1 H 1.8-7.8 X 10^3 Lymphocytes # (Auto) 1.6 1.0-4.0 X 10^3 Monocytes # (Auto) 0.7 0.0-1.0 X 10^3 Eosinophils # (Auto) 0.0 0.0-0.3 10^3/uL Basophils # (Auto) 0.0 0.0-0.1 10^3/uL OB - Assessment/Plan/Diagnosis Assessment Assessment: active labor Admission Dx 29 yo @ 38.2 weeks Active labor GBS neg Admission Status: Inpatient Order (span 2 midnights) Reason for Inpatient Admission: Active labor at term Plan Plan: Expectant Management (AROM and pitocin augmentation if dysfunctional contraction pattern) NGUYỄN JACOBS DO Sep 24, 2019 9:41 pm POS
[2019-09-24] MEDS ORDERED: MEASLES,MUMPS,RUBELLA 1 EA INJ SQ ONE (21:45)
[2019-09-24] MEDS ORDERED: BENZOCAINE/MENTHOL (DERMOPLAST) 56 ML CAN TP PRN (21:45)
[2019-09-24] MEDS ORDERED: HYDROcodone/APAP 5 MG/325 MG (LORTAB) TAB PO PRN (21:45)
[2019-09-24] MEDS ORDERED: DIBUCAINE (NUPERCAINAL) 1% OINT 30 GM TOP PRN (21:45)
[2019-09-24] MEDS ORDERED: TETANUS,DIPTH,PERTUSS P/F (BOOSTRIX) 0.5 ML VIAL IM ONE (21:45)
[2019-09-24] MEDS ORDERED: WITCH HAZEL(TUCKS) 40 EA JAR TOP PRN (21:45)
[2019-09-24] MEDS: IBUPROFEN 600 MG (MOTRIN) TAB PO SCH (22:21)
[2019-09-24] MEDS ORDERED: METHYLERGONOVINE 0.2 MG/ML (METHERGINE) AMP IM ONE (22:30)
--- NOTE | 2019-09-24 23:00 | NUR ---
EPIDURAL CATH REMOVED. TIP INTACT.
--- NOTE | 2019-09-24 23:10 | NUR ---
FF1 BELOW UMBILICUS, LIGHT/MODERATE RUBRA NOTED. PAD CHANGED. PT ASSISTED TO W'C AND TAKEN TO ROOM 312. PT ASSISTED TO THE TOILET. POSITIVE VOID. PERICARE COMPLETED. PT AMBULATED BACK TO BED. ORIENTATED TO ROOM. INFO PAPERS DISCUSSED. PT DENIES ANY NEEDS AT THIS TIME. WILL CONTINUE TO MONITOR
[2019-09-25] VITALS: BP 126/65
[2019-09-25] MEDS: D5 LR IV SOLUTION 1,000 ML IV SCH ×2 (03:25→05:18)
[2019-09-25 03:32] VITALS: BP 115/76
[2019-09-25] MEDS: IBUPROFEN 600 MG (MOTRIN) TAB PO SCH ×4 (03:32→21:12)
[2019-09-25] MEDS: CATHETER FLUSH 10 ML SYR IV SCH ×2 (06:00→06:42)
[2019-09-25 06:55] LABS: BASOPHILS % (AUTO) 0 % (0-10); EOSINOPHILS % (AUTO) 0 % (0-10); HEMATOCRIT 37 % (35-52); HEMOGLOBIN 12.6 G/DL (11.5-16.0); LYMPHOCYTES # (AUTO) 1.9 X 10^3 (1.0-4.0); LYMPHOCYTES % (AUTO) 17 % (12-44); MEAN CORPUSCULAR HEMOGLOBIN 30 PG (25-34); MEAN CORPUSCULAR HGB CONC 35 G/DL (32-36); MEAN CORPUSCULAR VOLUME 87 FL (80-99); MONOCYTES # (AUTO) 0.8 X 10^3 (0.0-1.0); MONOCYTES % (AUTO) 7 % (0-12); NEUTROPHILS # (AUTO) 8.3 X 10^3 (1.8-7.8); NEUTROPHILS % (AUTO) 75 % (42-75); PLATELET COUNT 197 10^3/uL (130-400); RED CELL DISTRIBUTION WIDTH 14.1 % (10.0-14.5)
--- NOTE | 2019-09-25 07:25 | Postpartum Progress Note ---
Note Note Day # 1 Subjective: Patient is without complaints. Ambulating, voiding. Tolerating a regular diet without nausea or vomiting. Normal lochia. Pain is well controlled with oral pain medications. Objective: Physical Exam: General - Alert and oriented, no apparent distress Abdomen - Soft, appropriately tender to palpation, non-distended, fundus firm at umbilicus Extremities - no edema, negative Lance's bilaterally Assessment: PPD 1 NVD Plan: Routine care. Encourage breast feeding. Encourage ambulation. Ferrous sulfate supplementation. Plan for discharge tomorrow Vitals - Labs Vital Signs - I&O Vital Signs Date Time Temp Pulse Resp B/P (MAP) Pulse Ox O2 Delivery O2 Flow Rate FiO2 09/25/19 03:32 36.4 98 18 115/76 (89) 98 Room Air 09/25/19 00:00 36.2 93 18 126/65 (85) 96 Room Air 09/24/19 22:40 36.3 86 18 116/61 (79) Room Air 09/24/19 22:25 36.3 94 18 120/68 (85) Room Air 09/24/19 22:00 115 18 134/62 (86) 98 Room Air 09/24/19 21:45 98 18 123/68 (86) 98 Room Air 09/24/19 21:30 105 18 118/57 (77) 98 Room Air 09/24/19 21:15 36.1 107 18 116/72 (87) 98 Room Air 09/24/19 21:00 89 18 98 Room Air 09/24/19 20:45 101 18 99 Room Air 09/24/19 20:30 88 18 129/80 (96) 100 Room Air 09/24/19 20:15 77 18 117/69 (85) 100 Room Air 09/24/19 20:00 80 18 104/60 (75) 100 Room Air 09/24/19 19:45 76 18 108/63 (78) 100 Room Air 09/24/19 19:30 82 18 109/61 (77) 100 Room Air 09/24/19 19:15 36.4 79 18 116/75 (89) 100 Room Air 09/24/19 19:00 85 18 111/70 (84) 97 Room Air 09/24/19 18:45 85 18 113/75 (88) 97 Room Air 09/24/19 18:30 89 18 121/78 (92) 97 Room Air 09/24/19 18:15 83 18 122/77 (92) 98 Room Air 09/24/19 18:00 81 18 122/78 (93) 100 Room Air 09/24/19 17:45 95 18 115/78 (90) 99 Room Air 09/24/19 17:30 85 18 112/75 (87) 99 Room Air 09/24/19 17:15 92 18 117/78 (91) 100 Room Air 09/24/19 17:00 87 18 118/75 (89) 99 Room Air 09/24/19 16:45 81 18 113/73 (86) 99 Room Air 09/24/19 16:30 87 18 118/75 (89) 99 Room Air 09/24/19 16:20 86 18 105/71 (82) 99 Room Air 09/24/19 16:16 92 18 118/78 (91) 98 Room Air 09/24/19 16:10 36.3 83 18 115/73 (87) 98 Room Air 09/24/19 16:09 85 18 118/72 (87) 98 Room Air 09/24/19 16:00 81 18 89 Room Air 09/24/19 15:55 83 18 111/70 (84) 92 Room Air 09/24/19 15:50 99 18 153/68 (96) 99 Room Air 09/24/19 15:45 96 18 147/91 (109) 99 Room Air 09/24/19 15:40 91 18 141/85 (103) 100 Room Air 09/24/19 15:35 102 18 131/88 (102) 99 Room Air 09/24/19 15:00 18 Room Air 09/24/19 14:15 36.1 87 16 97 Room Air 09/24/19 14:00 18 Room Air 09/24/19 12:30 18 Room Air 09/24/19 12:00 36.4 85 18 121/69 (86) Room Air 09/24/19 11:30 99 18 118/72 (87) Room Air 09/24/19 10:30 98 18 127/89 (102) Room Air 09/24/19 09:37 36.1 87 16 119/84 (96) 97 Room Air 09/24/19 09:20 36.1 87 18 97 Room Air Labs Laboratory Tests 09/24/19 11:16: White Blood Count 11.5H, Red Blood Count 5.08, Hemoglobin 14.8, Hematocrit 43, Mean Corpuscular Volume 85, Mean Corpuscular Hemoglobin 29, Mean Corpuscular Hemoglobin Concent 34, Red Cell Distribution Width 14.3, Platelet Count 238, Mean Platelet Volume 11.4H, Neutrophils (%) (Auto) 79H, Lymphocytes (%) (Auto) 14, Monocytes (%) (Auto) 6, Eosinophils (%) (Auto) 0, Basophils (%) (Auto) 0, Neutrophils # (Auto) 9.1H, Lymphocytes # (Auto) 1.6, Monocytes # (Auto) 0.7, Eosinophils # (Auto) 0.0, Basophils # (Auto) 0.0 09/25/19 06:35: White Blood Count 11.0, Red Blood Count 4.19L, Hemoglobin 12.6, Hematocrit 37, Mean Corpuscular Volume 87, Mean Corpuscular Hemoglobin 30, Mean Corpuscular Hemoglobin Concent 35, Red Cell Distribution Width 14.1, Platelet Count 197, Mean Platelet Volume 11.0H, Neutrophils (%) (Auto) 75, Lymphocytes (%) (Auto) 17, Monocytes (%) (Auto) 7, Eosinophils (%) (Auto) 0, Basophils (%) (Auto) 0, Neutrophils # (Auto) 8.3H, Lymphocytes # (Auto) 1.9, Monocytes # (Auto) 0.8, Eosinophils # (Auto) 0.0, Basophils # (Auto) 0.0 NGUYỄN JACOBS DO Sep 25, 2019 07:24 POS
[2019-09-25] MEDS ORDERED: DOCU100C37 PO (07:26)
[2019-09-25] MEDS ORDERED: ACHD5005 PO (07:26)
[2019-09-25] MEDS ORDERED: IBUP-844 PO (07:26)
[2019-09-25] MEDS ORDERED: Benzocaine/Menthol TP (07:26)
--- NOTE | 2019-09-25 07:27 | Discharge Inst-Women's Service ---
Discharge Inst-Women's Serv Depart Medication/Instructions New, Converted or Re-Newed RX: RX on Chart Final Diagnosis PPD 2 NVD Problems Reviewed?: Yes Consults/Follow Up Additional Follow Up: Yes Orders/Referrals Dr. Jacobs in 6 weeks Activity Activity: Activity as Tolerated Driving Instructions: No Driving for 1 Week NO SMOKING: NO SMOKING Nothing Inside Vagina: No Douching, No [place], No Tampons Diet Discharge Diet: No Restrictions Symptoms to Report to : Bleeding Excessive, Pain Increased, Fever Over 101 Degrees F, Vaginal Bleeding Increase, Questions/Concerns For Any Problems or Questions: Contact Your Physician NGUYỄN JACOBS DO Sep 25, 2019 07:27 POS
[2019-09-25] MEDS ORDERED: FERROUS SULF 325 MG (IRON) TAB PO SCH (09:00)
[2019-09-25] MEDS: PRENATAL VITAMIN 1 EA TAB PO SCH (09:10)
[2019-09-25] MEDS: DOCUSATE SODIUM 100 MG (COLACE) CAP PO SCH ×2 (09:10→21:12)
[2019-09-25 09:15] VITALS: BP 115/81
--- NOTE | 2019-09-25 09:15 | NUR ---
initial shift assessment completed, see interventions for further.
[2019-09-25 13:00] VITALS: BP 111/72
--- NOTE | 2019-09-25 13:33 | Anesthesia-Regional Post-Op ---
Regional Patient Condition Mental Status: Alert, Oriented x3 Circulation: Same as Pre-Op Headache: Absent Sensation: Full Recovery Motor Block: Absent Post Op Complications Complications None Follow Up Care/Instructions Patient Instructions None needed. Anesthesia/Patient Condition Patient is doing well, no complaints, stable vital signs, no apparent adverse anesthesia problems. No complications reported per nursing. D/C home per [facility] [place] Criteria: Yes TG HEATH CRNA Sep 25, 2019 13:33 POS
[2019-09-25 21:14] VITALS: BP 93/58
[2019-09-26 03:25] VITALS: BP 113/82
[2019-09-26] MEDS: IBUPROFEN 600 MG (MOTRIN) TAB PO SCH ×2 (03:25→08:59)
--- NOTE | 2019-09-26 07:46 | NUR ---
stork meal served.
--- NOTE | 2019-09-26 08:12 | NUR ---
here. dismissal orders received.
--- NOTE | 2019-09-26 08:12 | Postpartum Progress Note ---
Note Note Day #2 Subjective: Patient is without complaints. Ambulating, voiding. Tolerating a regular diet without nausea or vomiting. Normal lochia. Pain is well controlled with oral pain medications. Objective: Physical Exam: General - Alert and oriented, no apparent distress Abdomen - Soft, appropriately tender to palpation, non-distended, fundus firm at umbilicus Extremities - no edema, negative Lance's bilaterally Assessment: PPD 2 NVD Plan: Routine care. Encourage breast feeding. Encourage ambulation. Ferrous sulfate supplementation. Plan for discharge today Vitals - Labs Vital Signs - I&O Vital Signs Date Time Temp Pulse Resp B/P (MAP) Pulse Ox O2 Delivery O2 Flow Rate FiO2 09/26/19 03:25 37.0 74 20 113/82 (92) 99 Room Air 09/25/19 21:14 66 20 93/58 (70) 98 Room Air 09/25/19 13:00 36.2 76 20 111/72 (85) 96 Room Air 09/25/19 09:15 36.3 82 18 115/81 (92) 97 Room Air NGUYỄN JACOBS DO Sep 26, 2019 08:12 POS
[2019-09-26] MEDS: DOCUSATE SODIUM 100 MG (COLACE) CAP PO SCH (08:59)
[2019-09-26] MEDS: PRENATAL VITAMIN 1 EA TAB PO SCH (08:59)
[2019-09-26 09:00] VITALS: BP 126/78
--- NOTE | 2019-09-26 09:00 | NUR ---
initial shift assessment completed, see interventions for further.
--- NOTE | 2019-09-26 09:05 | NUR ---
dismissal instructions given, verbalizes understanding. reviewed follow up appointment and Rx's. signature page signed, placed on chart.
--- NOTE | 2019-09-26 11:20 | NUR ---
pt ambulated to private vehicle with staff, infant and @ side. infant secured in rear facing car seat. pt stable with no sx's of distress noted.
== END 2019-09-26 11:20 | disposition home or self-care (01) | DRG 807 ==
LOC: WSo 09:27 → LDRP 09:28 → WSo 09:56 → LDRP 23:32
PROVIDERS: ADMIT Obstetrics & Gynecology; ATTEND Obstetrics & Gynecology
PROC: 0W8NXZZ Division of Female Perineum, External Approach (ICD-10-PCS; principal; 2019-09-24)
PROC: 10E0XZZ Delivery of Products of Conception, External Approach (ICD-10-PCS; principal; 2019-09-24)
DX: O62.2 Other uterine inertia (principal); Z3A.38 38 weeks gestation of pregnancy; Z37.0 Single live birth
CPT/HCPCS: 36415; 83033; 85025; 86850; 86870; 86900; 86901; 99212

== ENCOUNTER 2021-02-01 05:29 | Outpatient (RCR) | payer BC ==
[~2021-02-01] VITALS: Ht 165.1 cm; Wt 77.6 kg
[~2021-02-01 05:29] MED LIST changes: +BACI1TAB3 PO; +Benzocaine/Menthol TP; -CETI10TA20 PO; +CETI10TA49 PO; -FOLI1TAB24 PO; +FOLI1TAB33 PO; +IBUP-844 PO
[2021-02-03] MEDS ORDERED: ACHD5005 PO (12:22)
[2021-02-03] MEDS ORDERED: DOCU-143 PO (12:22)
== END 2021-02-01 09:17 | disposition home or self-care (01) ==
LOC: PREOP 05:29
PROVIDERS: ATTEND Surgery
DX: Z01.812 Encounter for preprocedural laboratory examination (principal); K82.8 Other specified diseases of gallbladder; Z20.822 Contact with and (suspected) exposure to COVID-19
CPT/HCPCS: 87635

== ENCOUNTER 2021-02-03 09:05 | Day surgery (SDC) | payer BC ==
[2021-02-03] VITALS (12 sets, daily range): BP systolic 87–120; BP diastolic 58–92
[~2021-02-03] VITALS: Ht 165.1 cm; Wt 77.6 kg
[2021-02-03] MEDS ORDERED: CATHETER FLUSH 10 ML SYR IV PRN (09:30)
[2021-02-03] MEDS: LACTATED RINGERS 1,000 ML IV PRN ×2 (09:30→12:52)
[2021-02-03] MEDS ORDERED: ceFAZolin INJECTION 1,000 MG in WATER (STERILE) FOR INJECTION 10 ML IV ONE (09:30)
[2021-02-03] MEDS ORDERED: ONDA4TAB11 PO (09:31)
[2021-02-03] MEDS ORDERED: SCOPOLAMINE 1.5 MG (TRANSDERM-SCOP) PATCH ONE (09:41)
[2021-02-03] MEDS ORDERED: ONDANSETRON 4 MG/2 ML (SDV) Z0FRAN ONE ×2 (09:41→10:24)
[2021-02-03] MEDS ORDERED: FAMOTIDINE 20MG/2ML IV (PEPCID) ONE (09:42)
[2021-02-03] MEDS ORDERED: ONDANSETRON 4 MG/2 ML (SDV) Z0FRAN IV ONE (09:45)
[2021-02-03] MEDS ORDERED: SCOPOLAMINE 1.5 MG (TRANSDERM-SCOP) PATCH TOP ONE (09:45)
[2021-02-03] MEDS ORDERED: FAMOTIDINE 20MG/2ML IV (PEPCID) IV ONE (09:45)
[2021-02-03] MEDS ORDERED: LACTATED RINGERS 1,000 ML IV PRN (09:45)
[2021-02-03 09:51] LABS: BASOPHILS % (AUTO) 0 % (0-10); EOSINOPHILS % (AUTO) 0 % (0-10); HEMATOCRIT 46 % (35-52); HEMOGLOBIN 15.9 g/dL (11.5-16.0); LYMPHOCYTES # (AUTO) 0.7 10^3/uL (1.0-4.0); LYMPHOCYTES % (AUTO) 5 % (12-44); MEAN CORPUSCULAR HEMOGLOBIN 30 pg (25-34); MEAN CORPUSCULAR HGB CONC 34 g/dL (32-36); MEAN CORPUSCULAR VOLUME 86 fL (80-99); MEAN PLATELET VOLUME 10.3 fL (9.0-12.2); MONOCYTES # (AUTO) 0.9 10^3/uL (0.0-1.0); MONOCYTES % (AUTO) 7 % (0-12); NEUTROPHILS # (AUTO) 12.4 10^3/uL (1.8-7.8); NEUTROPHILS % (AUTO) 88 % (42-75); PLATELET COUNT 267 10^3/uL (130-400); WHITE BLOOD COUNT 14.1 10^3/uL (4.3-11.0)
[2021-02-03] MEDS ORDERED: IOPAMIDOL 61% 30 ML (ISOVUE 300) VIAL ONE (09:57)
[2021-02-03] MEDS ORDERED: LIDOCAINE/EPI 1%-1:200,000 (XYLOCAINE) 10 ML VIAL ONE (09:58)
--- NOTE | 2021-02-03 10:07 | Progress Note-Pre Operative ---
Pre-Operative Progress Note H&P Reviewed The H&P was reviewed, patient examined and no changes noted. Date Seen by Provider: Feb 03, 2021 Time Seen by Provider: 10:06 Date H&P Reviewed: Feb 03, 2021 Time H&P Reviewed: 10:06 Pre-Operative Diagnosis: epigastric abd pain biliary dyskinesia ISIDRA ESQUIVEL DO Feb 03, 2021 10:07
[2021-02-03] MEDS ORDERED: MIDAZOLAM 2 MG/2 ML (VERSED) VIAL ONE (10:18)
[2021-02-03] MEDS ORDERED: fentaNYL INJ 100 MCG/2 ML AMP ONE (10:19)
[2021-02-03] MEDS ORDERED: LIDOCAINE PF 2% 5 ML (XYLOCAINE) VIAL ONE ×2 (10:21)
[2021-02-03] MEDS ORDERED: proPOfol 200 MG/20 ML (DIPRIVAN) VIAL IV ONE ×2 (10:21)
[2021-02-03] MEDS ORDERED: SEVOFLURANE (ULTANE) 15 ML INHAL SOLN ONE (10:24)
[2021-02-03] MEDS ORDERED: ROCURONIUM 10 MG/ML 5 ML SYRINGE IV ONE (10:24)
[2021-02-03] MEDS ORDERED: SUCCINYLCHOLINE INJ 100 MG/5 ML SYR/VIAL ONE (11:52)
[2021-02-03] MEDS ORDERED: NEOSTIGMINE 3 MG/3 ML VIAL ONE (12:15)
[2021-02-03] MEDS ORDERED: GLYCOPYRROLATE 0.2 MG/ML (ROBINUL) 2 ML VIAL ONE (12:15)
--- NOTE | 2021-02-03 12:21 | Progress Note-Post Operative ---
Post-Operative Progess Note Surgeon (s)/Payroll Benefits Clerk (s) Surgeon ISIDRA ESQUIVEL DO Payroll Benefits Clerk: Dr. Hinds to assist in retraction dissection and closure. Pre-Operative Diagnosis epigastric abd pain biliary dyskinesia Post-Operative Diagnosis same Procedure & Operative Findings Date of Procedure 02/03/21 Procedure Performed/Findings PROCEDURE: Laparoscopic cholecystectomy with intraoperative cholangiogram. COMPLICATIONS: None. PROCEDURE: The patient was taken to the operating suite and was prepped and draped in sterile fashion. A surgical pause was performed. Just superior to the umbilicus, a 12 mm incision was made. Dissection was taken down to the fascia, which was then scored and grasped with a Amparo and the abdomen was then entered. A 0 Vicryl suture was placed in a [id number] fashion and a Patricia trocar was placed and secured. Pneumoperitoneum was achieved. A 5mm trochar place in the subxyphoid and 2 in the right upper quadrant. The gallbladder was then grasped and elevated. The cystic duct, and cystic artery were then dissected out. Clip was placed on the distal portion of the cystic duct which was then partially transected. An arrow catheter was inserted into the duct. The cholangiogram was then performed. No filing defects and contrast made its way into the duodenum. Catheter removed. Clips were placed on proximal portion of the cystic duct and then the duct was then transected. Clips were placed along the proximal and distal portion of the cystic artery which was then transected. Hook cautery was used to dissect the gallbladder from the gallbladder fossa achieving hemostasis. The gallbladder was placed in an Endobag and removed through the 12 mm trocar site. The abdomen was then reinspected. Copious amounts of irrigation were used to irrigate the abdomen and there were no signs of active bleeding. Hemostasis had been achieved. The 12 mm fascial defect was then closed with 0 Vicryl suture that had been placed in a [id number] fashion. The abdomen was then desufflated, the trocars were removed. The abdomen was then washed and dried. The skin was then closed using 4-0 Monocryl in a subcuticular fashion. The abdomen was washed and dried and Skin Affix was place over incisions. Patient tolerated the procedure well without any complications and was taken to the recovery room in stable condition. Anesthesia Type general Estimated Blood Loss Estimated blood loss (mL): minimal Specimens/Packing Specimens Removed gallbladder ISIDRA ESQUIVEL DO Feb 03, 2021 12:21
[2021-02-03] MEDS ORDERED: ACHD5005 PO (12:22)
[2021-02-03] MEDS ORDERED: DOCU-143 PO (12:22)
--- NOTE | 2021-02-03 12:22 | Discharge Inst-Simple/Standard ---
Discharge Inst-Standard Discharge Medications New, Converted or Re-Newed RX: RX on Chart Patient Instructions/Follow Up Plan of Care/Instructions/FU: 2-3 weeks Nathaniel Activity as Tolerated: No Discharge Diet: Regular Diet Other Inst to Patient Follow up Appt: Make appointment for 2-3 weeks. Instructions: No lifting greater than 10 pounds. No strenuous activity. May shower in 24 hours, no tub bath or soaking. Use incentive spirometer at home as directed. No Smoking Skin/Wound Care: You have special glue over incision, it will fall off on it's own. Symptoms to Report: Appetite Changes, Extremity Discoloration, Numbness/Tingling, Swelling Increased, Bleeding Excessive, Eyesight Changes, Pain Increased, Urine Color Change, Constipation(Persistent), Fever over 101 degree F, Pain/Pressure in chest, Urinating Difficulty, Cough Up/Vomit Blood, Heart Beat Irreg/Pounding, Pain/Pressure in jaw, Vaginal Bleeding Increase, Cramps in feet or legs, Lightheadedness, Pain/Pressure in shoulder, Diarrhea(Persistent), Memory Changes Suddenly, Questions/Concerns, Weight gain consecutive days, Dizziness/Fainting, Nausea/Vomiting, Shortness of Breath, Weight gain over 2 pounds. If eyes or skin turn yellow notify physician. If questions or concerns contact your physician Or seek help at emergency department. ISIDRA ESQUIVLE DO Feb 03, 2021 12:22
[2021-02-03] MEDS ORDERED: fentaNYL INJ 100 MCG/2 ML AMP IVP ONE (12:45)
[2021-02-03] MEDS ORDERED: HYDROmorphone 2 MG/ML VIAL (DILAUDID) IV ONE (12:45)
[2021-02-03] MEDS ORDERED: HYDROmorphone 2 MG/ML VIAL (DILAUDID) ONE (12:55)
[2021-02-03] MEDS: ONDANSETRON 4 MG/2 ML (SDV) Z0FRAN IVP PRN ×2 (13:01→13:47)
[2021-02-03] MEDS ORDERED: HYDROcodone/APAP 5 MG/325 MG (LORTAB) TAB PO ONE (13:45)
[2021-02-03] MEDS ORDERED: HYDROcodone/APAP 5 MG/325 MG (LORTAB) TAB ONE (13:45)
--- NOTE | 2021-02-03 13:59 | Diagnostic Imaging Report ---
Indication: Fluoroscopy during intraoperative cholangiogram. Fluoroscopy was provided in the OR during intraoperative cholangiogram. Contrast was injected via the cystic duct remnant. 12 seconds of fluoroscopic time was utilized. Images demonstrate a normal caliber intrahepatic and hepatic bile ducts. Contrast flows into the duodenum. IMPRESSION: Fluoroscopy during intraoperative cholangiogram. Dictated by: Dictated on workstation # [id number]
--- NOTE | 2021-02-03 14:26 | Anesthesia-General Post-Op ---
General Patient Condition Mental Status/LOC: Same as Preop Cardiovascular: Satisfactory Nausea/Vomiting: Absent Respiratory: Satisfactory Pain: Controlled Complications: Absent Post Op Complications Complications None Follow Up Care/Instructions Patient Instructions None needed. Anesthesia/Patient Condition Patient Condition Patient is doing well, no complaints, stable vital signs, no apparent adverse anesthesia problems. No complications reported per nursing. LEESA MAGAÑA CRNA Feb 03, 2021 14:26
[2021-02-03] MEDS ORDERED: ONDANSETRON 4 MG/2 ML (SDV) Z0FRAN IVP ONE (15:15)
== END 2021-02-03 15:25 | disposition home or self-care (01) ==
LOC: SDC 09:05
PROVIDERS: ATTEND Surgery
DX: K81.1 Chronic cholecystitis (principal); K82.8 Other specified diseases of gallbladder; J45.909 Unspecified asthma, uncomplicated; E66.9 Obesity, unspecified; Z68.28 Body mass index [BMI] 28.0-28.9, adult; Z79.899 Other long term (current) drug therapy; Z79.51 Long term (current) use of inhaled steroids; Z88.5 Allergy status to narcotic agent; Z91.040 Latex allergy status
CPT/HCPCS: 36415; 76000; 84703; 85025; 87081; 88304

== ENCOUNTER → 2021-11-23 | Outpatient (CLI) | payer BC ==
[~2021-11-23] MED LIST changes: +DOCU-143 PO; +ONDA4TAB11 PO
== END ==
LOC: LABNPT 05:39
PROVIDERS: ATTEND Family Medicine
DX: R05.9 Cough, unspecified (principal); R50.9 Fever, unspecified; Z20.822 Contact with and (suspected) exposure to COVID-19
CPT/HCPCS: 87636